=== PATIENT | male | born 1985 | race Asian ===

== ENCOUNTER 2018-12-23 08:21 | Day surgery (SDC) | payer OTHER ==
[~2018-12-23] VITALS: Ht 175.3 cm; Wt 77.2 kg
[2018-12-23 08:33] VITALS: BP 122/75; PULSE 67; TEMP 98.6
--- NOTE | 2018-12-23 08:40 | NUR ---
The patient was asked the series of questions for suicide risk and answered "yes" to Questions 1, 2, 3, 4, and 6. Louann Mccormick, with social work, was called assist with the patient further evaluation.
--- NOTE | 2018-12-23 08:45 | NUR ---
The nurse notified Dr. Petersen of the patient's "yes" answers on the suicide risk screening tool. He verbalized understanding of the report given.
--- NOTE | 2018-12-23 08:55 | NUR ---
The nurse and [employer] social worker were at the patient's bedside to further assess his current suicide risk. The patient denied having any current thoughts of killing himself or a current plan to commit suicide. The patient was given a list of local mental health resources. He states that he sees a counselor at the [facility] in [place] monthly but is currently seeing a counselor weekly after his suicide attempt.
[2018-12-23] MEDS ORDERED: LATUDA40 MG PO (09:16)
[2018-12-23] MEDS ORDERED: ESKALITH C450 MG/TAB PO (09:16)
[2018-12-23] MEDS ORDERED: EPA FISH OIL1 SGL PO (09:17)
[2018-12-23] MEDS ORDERED: VITAMIN D 1001000 IU PO (09:17)
--- NOTE | 2018-12-23 09:35 | NUR ---
air brake worker and nurse, Jen, met with patient as he responded with yes questions on the suicide risk assessment. Patient stated, to nurse, he was in the [place] [facility] in [place] last week for one day due to overdose on cough syrup. Patient states she has a counselor at the [place] [facility] and has appointments once monthly. Since patient's discharge from the [place], patient has appointments 4 times monthly and patient's next appointmnet is 12/27/18. Patient states he is not currently suicidal and does not have a plan at time time to end his life. Worker and nurse provided written mental health resources to patient. Patient states he has a hotline number to the [place] as well.
[2018-12-23 10:00] VITALS: BP 119/82; PULSE 92; TEMP 97.9
--- NOTE | 2018-12-23 10:00 | NUR ---
Patient brought back to [facility]. Alert and oriented, ambulated to chair without difficulty. Vital signs stable. Denies any nausea or pain. States he would like a water and muffin. Nette at bedside. Call lorenzo within reach, will continue to monitor.
[2018-12-23 10:15] VITALS: BP 119/82; PULSE 92
[2018-12-23 10:30] VITALS: BP 114/87; PULSE 79
--- NOTE | 2018-12-23 10:30 | NUR ---
Vital signs remain stable. Patient states he is ready to go home. Discharge instructions reviewed with patient and . IV removed per orders, tolerated well. Patient to get dressed at this time.
--- NOTE | 2018-12-23 10:43 | NUR ---
Patient ambulated down to lobby. To be driven home by Nette.
== END 2018-12-23 10:43 | disposition home or self-care (01) ==
LOC: SDCO 08:21
DX: K59.00 Constipation, unspecified (principal); R93.3 Abnormal findings on diagnostic imaging of other parts of digestive tract; K62.5 Hemorrhage of anus and rectum; F32.9 Major depressive disorder, single episode, unspecified; F41.9 Anxiety disorder, unspecified; F43.10 Post-traumatic stress disorder, unspecified; Z87.891 Personal history of nicotine dependence
CPT/HCPCS: J2250; J2405; J3010; J7030